=== PATIENT | male | born 1980 | race Caucasian/White ===

== ENCOUNTER → 2021-11-18 08:10 | Outpatient (BNVA) | payer OTHER, SELFPAY | PROVIDERS: PCP Internal Medicine; Visit Provider Physician Assistant Medical | DX: Z77.122 Contact with and (suspected) exposure to noise (principal); H83.3X1 Noise effects on right inner ear; H93.11 Tinnitus, right ear | CPT/HCPCS: 99203 ==

== ENCOUNTER → 2021-11-25 08:03 | Outpatient (BNVA) | payer OTHER, SELFPAY | PROVIDERS: PCP Internal Medicine; Visit Provider Internal Medicine | DX: Z57.0 Occupational exposure to noise (principal) | CPT/HCPCS: 99213 ==